=== PATIENT | male | born 1965 | race African-American/Black ===

== ENCOUNTER 2017-08-31 07:15 | Emergency (ER) | payer OTHER ==
[~2017-08-31] VITALS: Ht 185.4 cm; Wt 109.0 kg
[2017-08-31 07:25] VITALS: BP 129/95
== END 2017-08-31 09:23 | disposition left against medical advice (07) ==
LOC: ER 07:22
DX: S51.811A Laceration without foreign body of right forearm, initial encounter (principal); Z53.21 Procedure and treatment not carried out due to patient leaving prior to being seen by health care provider; W26.0XXA Contact with knife, initial encounter; Y93.89 Activity, other specified; Y92.89 Other specified places as the place of occurrence of the external cause; Y99.8 Other external cause status

== ENCOUNTER 2017-12-08 19:39 | Emergency (ER) | payer OTHER ==
[~2017-12-08] VITALS: Ht 188 cm; Wt 114.0 kg
[2017-12-09] MEDS ORDERED: BACITRACIN ZINC OINT UDPKT TOP ONE (01:15)
[2017-12-09] MEDS ORDERED: LIDOCAINE HCL 1% 20ML VIAL (Pyxis) INJ INFIL ONE (01:15)
[2017-12-09] MEDS ORDERED: LIDOCAINE HCL/PF 1% 10 MG/ML 30ML VIAL INFIL SCH (02:12)
[2017-12-09] MEDS ORDERED: IBUPROFEN 600MG TABLET PO ONE (04:15)
[2017-12-09 05:10] VITALS: BP 136/81
== END 2017-12-09 05:10 | disposition home or self-care (01) ==
LOC: ER 21:23
DX: L03.011 Cellulitis of right finger (principal)
CPT/HCPCS: 10060; 99283; J3490; Z7610

== ENCOUNTER 2017-12-12 10:47 | Emergency (ER) | payer OTHER ==
[~2017-12-12] VITALS: Ht 188 cm; Wt 95.0 kg
[2017-12-12] MEDS ORDERED: BACITRACIN ZINC OINT UDPKT TOP ONE (11:15)
[2017-12-12] MEDS ORDERED: LIDOCAINE HCL 1% 20ML VIAL (Pyxis) INJ MC ONE (15:45)
[2017-12-12] MEDS ORDERED: KETOROLAC 60MG/2ML VIAL IM ONE (15:45)
[2017-12-12] MEDS ORDERED: LIDOCAINE HCL/PF 1% 10 MG/ML 30ML VIAL INL ONE (16:00)
[2017-12-12] MEDS ORDERED: CEFTRIAXONE SODIUM 250 MG/VIAL IM ONE (17:00)
[2017-12-12 17:33] VITALS: BP 117/89
== END 2017-12-12 17:35 | disposition home or self-care (01) ==
LOC: ER 15:20
DX: L03.011 Cellulitis of right finger (principal)
CPT/HCPCS: 10060; 96372; 99284; J0696; J1885; J3490; Z7610